=== PATIENT | male | born 1995 | race Two or more races ===

== ENCOUNTER 2023-11-16 19:25 | Inpatient (IN) | payer MEDICAID ==
[~2023-11-16] VITALS: Ht 170.2 cm; Wt 69.0 kg
[~2023-11-16 19:25] MED LIST: calcium chloride 100 MG/1 ML inj IV ONE
[2023-11-16] MEDS: naloxone 2mg/2ml inj IV STA (19:35)
[2023-11-16] MEDS: normal saline 1000ml 1,000 ML IV ONE (19:39)
[2023-11-16] MEDS ORDERED: propofol 1000mg/100ml bottle 100 ML IV SCH (20:05)
[2023-11-16] MEDS: propofol 1000mg/100ml bottle 100 ML IV SCH (20:08)
[2023-11-16] MEDS: propofol 1000mg/100ml bottle 100 ML IV ONE (20:09)
[2023-11-16] MEDS: succinylcholine 20mg/ml inj IV ONE ×2 (20:10→20:17)
[2023-11-16] MEDS: midazolam 100mg in NS 100ml 100 ML IV PRN (20:16)
[2023-11-16 20:27] LABS: EOSINOPHILS # (AUTO) 0.1 X10'3 (0-0.9); LYMPHOCYTES # (AUTO) 3.4 X10'3 (1.1-4.8)
[2023-11-16 20:28] LABS: BASOPHILS % (AUTO) 0.5 % (0-1); EOSINOPHILS % (AUTO) 1.2 % (0-6); LYMPHOCYTES % (AUTO) 45.7 % (21-51); MEAN PLATELET VOLUME 7.4 FL (7.4-10.4); MONOCYTES # (AUTO) 0.3 X10'3 (0-0.9); MONOCYTES % (AUTO) 4.1 % (2-12); NEUTROPHILS # (AUTO) 3.6 X10'3 (1.8-7.7); NEUTROPHILS % (AUTO) 48.5 % (42-75); PLATELET COUNT 609 X10'3 (140-440); WHITE BLOOD COUNT 7.5 X10'3 (4.5-11.0)
[2023-11-16 20:36] LABS: URINE AMPHETAMINE SCREEN NEGATIVE (Neg); URINE BARBITUATE SCREEN NEGATIVE (Neg); URINE BENZODIAZEPINES SCREEN NEGATIVE (Neg); URINE CANNABINOID SCREEN POSITIVE (Neg); URINE COCAINE SCREEN NEGATIVE (Neg); URINE METHADONE SCREEN NEGATIVE (Neg); URINE OPIATE SCREEN NEGATIVE (Neg); URINE PHENCYCLIDINE SCREEN NEGATIVE (Neg)
[2023-11-16 20:37] LABS: ALBUMIN 3.1 G/DL (3.4-5.0); ANION GAP 19 (8-16); BLOOD UREA NITROGEN 8 MG/DL (7-18); BUN/CREATININE RATIO 7.8 (10.0-20.0); CALCIUM 7.7 MG/DL (8.5-10.1); CHLORIDE 109 MMOL/L (99-107); CREATININE 1.02 MG/DL (0.60-1.10); GLUCOSE 174 MG/DL (70-104); SODIUM 147 MMOL/L (135-145); TOTAL CARBON DIOXIDE 19.3 MMOL/L (24-32); eCRCL 101 ML/MIN; eGFR 87 ML/MIN
[2023-11-16 20:38] LABS: ETHANOL 360 MG/DL (<10)
[2023-11-16 20:40] LABS: POTASSIUM 2.9 MMOL/L (3.5-5.1)
[2023-11-16 20:45] VITALS: PULSE 156; RESP 25; O2SAT 97
[2023-11-16 20:53] LABS: MEAN CORPUSCULAR HEMOGLOBIN 17.9 PG (27.0-31.0); MEAN CORPUSCULAR HGB CONC 30.4 g/dL (33.0-36.5); MEAN CORPUSCULAR VOLUME 58.9 FL (78-98); RED BLOOD COUNT 4.08 X10'6 (4.70-6.10)
[2023-11-16 20:55] LABS: HEMOGLOBIN 7.3 g/dl (14.0-17.9)
[2023-11-16 21:43] VITALS: TEMP 97.5
[2023-11-16] MEDS ORDERED: ondansetron/PF 4mg/2ml inj IV PRN (22:20)
[2023-11-16] MEDS ORDERED: morphine 4 MG/ML inj SYRINge IV PRN (22:20)
[2023-11-16] MEDS: normal saline 1000ml 1,000 ML IV SCH (22:20)
[2023-11-16] MEDS ORDERED: magnesium hydroxide 30ml (MOM) UD suspension PO PRN (22:20)
[2023-11-16] MEDS ORDERED: acetaminophen 325mg tablet PO PRN ×2 (22:20)
[2023-11-16] MEDS ORDERED: morphine 2 MG/ML inj. syringe IV PRN (22:20)
[2023-11-16] MEDS ORDERED: magnesium 2GM in 50ml NS 50 ML IV PRN (22:50)
[2023-11-16] MEDS ORDERED: magnesium 4gm in 100ml NS 100 ML IV PRN (22:50)
[2023-11-16 22:54] VITALS: BP 161/115; PULSE 131; RESP 27; O2SAT 98
[2023-11-17] VITALS (25 sets, daily range): BP systolic 115–150; BP diastolic 75–105; PULSE 85–116; RESP 13–25; O2SAT 87–100
[2023-11-17] MEDS: potassium Cl 40MEQ/1/2NS 520ml 520 ML IV PRN (00:03)
[2023-11-17 03:33] LABS: BASOPHILS # (AUTO) 0.1 X10'3 (0-0.2); BASOPHILS % (AUTO) 0.8 % (0-1); EOSINOPHILS % (AUTO) 0 % (0-6); LYMPHOCYTES # (AUTO) 0.9 X10'3 (1.1-4.8); LYMPHOCYTES % (AUTO) 8.8 % (21-51); MEAN PLATELET VOLUME 8.4 FL (7.4-10.4); MONOCYTES # (AUTO) 0.6 X10'3 (0-0.9); MONOCYTES % (AUTO) 5.6 % (2-12); NEUTROPHILS # (AUTO) 8.3 X10'3 (1.8-7.7); NEUTROPHILS % (AUTO) 84.8 % (42-75); PLATELET COUNT 582 X10'3 (140-440); WHITE BLOOD COUNT 9.8 X10'3 (4.5-11.0)
[2023-11-17 03:35] LABS: ABG BASE EXCESS -1.2 mmol/L (-2.0-2.0); ABG HCO3 23.7 mmol/L (22.0-26.0); ABG OXYGEN SATURATION 97.9 % (94-97); ABG PCO2 (T) 43.5 mmHg (35.0-48.0); ABG PH (T) 7.361 (7.340-7.440); FCOHb 0.9 % (0.0-3.9); FHHb 2.1 % (0.0-5.0); FMetHb 0.3 % (0.0-1.5); FO2Hb 96.7 % (94-97); MODE prvc; PATIENT TEMPERATURE 38.7; PEEP 5 cm H2O; RESPIRATORY RATE 14 b/min; TIDAL VOLUME 450 mL; TOTAL HEMOGLOBIN 7.8 G/dl (14.0-17.9)
[2023-11-17 03:37] LABS: ALBUMIN 3.2 G/DL (3.4-5.0); ANION GAP 9 (8-16); BLOOD UREA NITROGEN 7 MG/DL (7-18); BUN/CREATININE RATIO 9.3 (10.0-20.0); CALCIUM 6.9 MG/DL (8.5-10.1); CHLORIDE 109 MMOL/L (99-107); CREATININE 0.75 MG/DL (0.60-1.10); GLUCOSE 74 MG/DL (70-104); SODIUM 145 MMOL/L (135-145); TOTAL CARBON DIOXIDE 26.9 MMOL/L (24-32); eCRCL 137 ML/MIN; eGFR > 90 ML/MIN
[2023-11-17 04:26] LABS: HEMATOCRIT 24.7 % (42.0-52.0); MEAN CORPUSCULAR HGB CONC 32.5 g/dL (33.0-36.5); MEAN CORPUSCULAR VOLUME 58.7 FL (78-98); RED BLOOD COUNT 4.21 X10'6 (4.70-6.10); RED CELL DISTRIBUTION WIDTH 20.6 % (11.5-14.5)
[2023-11-17 06:25] LABS: ANISOCYTOSIS 3+; MICROCYTOSIS 3+; PLATELET ESTIMATE INCREASED
[2023-11-17 06:30] LABS: ELLIPTOCYTES FEW; POIKILOCYTOSIS FEW
[2023-11-17 07:15] LABS: PATIENT TEMPERATURE 36.2
[2023-11-17 07:16] LABS: MINUTE VOLUME 15 L/min; MODE AC/PRVC
[2023-11-17 07:17] LABS: ABG BASE EXCESS -4.5 mmol/L (-2.0-2.0); ABG PCO2 (T) 27.5 mmHg (35.0-48.0); ABG PH (T) 7.454 (7.340-7.440); FCOHb 0.7 % (0.0-3.9); FO2Hb 97.5 % (94-97); TOTAL HEMOGLOBIN 7.7 G/dl (14.0-17.9)
[2023-11-17 07:18] LABS: ABG OXYGEN SATURATION 98.7 % (94-97); FHHb 1.3 % (0.0-5.0); FMetHb 0.5 % (0.0-1.5)
[2023-11-17] MEDS: K and/or MAG REPLACEMENT MC SCH (07:31)
[2023-11-17] MEDS: enoxaparin 40mg/0.4ml syringe SUBCUT SCH (08:05)
[2023-11-17] MEDS: labetalol 100mg tablet PO SCH (08:05)
[2023-11-17] MEDS: famotidine/PF 10 mg/ml inj IV SCH (08:06)
[2023-11-17] MEDS ORDERED: LORazepam 2 mg/ml vial IV PRN ×2 (09:25)
[2023-11-17] MEDS ORDERED: haloperidol lactate 5mg/ml inj IM PRN (09:25)
[2023-11-17] MEDS: thiamine 100mg/ml 2ml inj. IV SCH (13:00)
[2023-11-17] MEDS ORDERED: UNABLE TO OBTAIN (15:01)
[2023-11-17] MEDS ORDERED: sennosides/docusate sodium tablet PO SCH (21:00)
[2023-11-18] MEDS ORDERED: nicotine 14mg patch - 24hr TD SCH (08:00)
[2023-11-18] MEDS ORDERED: multivitamins, therapeutics tablet PO SCH (08:00)
[2023-11-18] MEDS ORDERED: folic acid 1mg/0.2ml inj IV SCH (08:00)
[2023-11-21] MEDS ORDERED: thiamine 100mg tablet PO SCH (08:00)
[2023-11-22] MEDS ORDERED: folic acid 1mg tablet PO SCH (08:00)
== END 2023-11-17 15:41 | disposition left against medical advice (07) | DRG 812 ==
LOC: ER 19:26 → CICU 2S 22:30
PROVIDERS: ADMIT Internal Medicine; ATTEND Internal Medicine
PROC: 5A1935Z Respiratory Ventilation, Less than 24 Consecutive Hours (ICD-10-PCS; principal; 2023-11-17)
PROC: 0BH17EZ Insertion of Endotracheal Airway into Trachea, Via Natural or Artificial Opening (ICD-10-PCS; 2023-11-17)
DX: T40.411A Poisoning by fentanyl or fentanyl analogs, accidental (unintentional), initial encounter (principal); J96.00 Acute respiratory failure, unspecified whether with hypoxia or hypercapnia; J69.0 Pneumonitis due to inhalation of food and vomit; G92.9 Unspecified toxic encephalopathy; E87.6 Hypokalemia; F10.120 Alcohol abuse with intoxication, uncomplicated; F11.90 Opioid use, unspecified, uncomplicated; I16.0 Hypertensive urgency; R65.10 Systemic inflammatory response syndrome (SIRS) of non-infectious origin without acute organ dysfunction; Z53.29 Procedure and treatment not carried out because of patient's decision for other reasons
CPT/HCPCS: 36415; 36600; 70450; 71045; 74018; 80048; 80305; 80320; 82803; 82948; 84484; 85008; 85018; 85025; 86885; 86900; 86901; 87070; 87077; 87081; 87185; 93005; 94002; 94003; 94760; 94799; 96374; 96375; 99291; A4615; G0378; J0330; J1650; J2310; J2704; J3411; J3480; J3490; J7030